=== PATIENT | male | born 1935 | race Caucasian/White ===

== ENCOUNTER → 2019-11-08 12:59 | Outpatient (CLI) | payer OTHER, SELFPAY ==
--- NOTE | ~2019-11-08 | CT_ITS ---
EXAMINATION: CT thoracic spine wo con EXAM DATE: 11/08/2019 13:22 INDICATION: TECHNIQUE: Spiral CT thoracic spine wo con was performed without contrast. Axial, coronal and sagit aroldo images were reviewed. The dose-length product (DLP) for this examination was 1104.49 mGy-cm. Th e exposure was tailored according to patient size (auto mA exposure control), and iterative reconstru ction (ASIR) was used as additional dose reduction technique. There is no prior study for comparison . FINDINGS: Patient has diffuse thoracic idiopathic skeletal hyperostosis. Cervical fusion hardware inc ompletely imaged. There is thoracolumbar spinal fusion hardware. No fracture line identified through the flowing thoracic syndesmophytes. There is mild to moderate thoracic disc disease. The vertebral b jone heights are maintained. Significant bilateral neural foraminal stenosis at T2-3 and T3-4. There i s moderate left neural foraminal stenosis at C5-6. Otherwise no more than mild central canal or neura l foraminal stenosis suspected. There is overall mild thoracic facet arthropathy. There are no bony e rosions identified. Paraspinal soft tissue is unremarkable. Pacemaker. IMPRESSION: 1. No acute thoracic findings. 2. Diffuse idiopathic skeletal hyperostosis without fracture line identified. 3. Significant neural foraminal stenosis cervical thoracic region and left T5-6 neural foramina. 4. Mild to moderate thoracic spondylosis. Reviewed, dictated and finalized at location B. 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 No acute thoracic findings. 2. Diffuse idiopathic skeletal hyperostosis without fracture line identified. 3. Significant neural foraminal stenosis cervical thoracic region and left T5- 6 neural foramina. 4. Mild to moderate thoracic spondylosis.
--- NOTE | ~2019-11-08 | XR_ITS ---
EXAMINATION: XR thoracic spine 2V DATE: 11/08/2019 13:33 INDICATION: Thoracic spine pain TECHNIQUE: AP, lateral and lateral swimmer's views of the thoracic spine were obtained. COMPARISON: CT from today FINDINGS: There are partially imaged changes of posterior fusion of the lower cervical spine and lowe r thoracolumbar spine. No fracture is identified. The vertebral body heights and alignment are normal . There is mild to moderate loss of intervertebral disc space height at several levels in the thoraci c spine. A dual-lead pacemaker of the left chest wall ends with its leads in expected positions. IMPRESSION: 1. Mild to moderate thoracic spondylosis without acute findings. 2. Diffuse idiopathic skeletal hyperostosis. Reviewed, dictated and finalized at location A. [employer] MANAGER
== END ==
PROVIDERS: PCP Emergency Medicine; Visit Provider Physician Assistant Medical
DX: M47.814 Spondylosis without myelopathy or radiculopathy, thoracic region (principal); M48.04 Spinal stenosis, thoracic region; M48.14 Ankylosing hyperostosis [Forestier], thoracic region
CPT/HCPCS: 72070; 72128

== ENCOUNTER → 2020-06-26 09:12 | Outpatient (CLI) | payer OTHER, SELFPAY ==
--- NOTE | ~2020-06-26 | CT_ITS ---
EXAMINATION: CT lumbar spine wo con DATE: 06/26/2020 09:44 INDICATION: Lumbar radiculopathy. TECHNIQUE: Computed tomography (CT) of the lumbar spine was performed without intravenous contrast. A utomated exposure control and iterative reconstruction technique were employed. The dose-length produ ct was 1142.99 mGy-cm. COMPARISON: None FINDINGS: There is 4 degrees dextrocurvature of thoracolumbar spine. Vertebral body heights are bubba l. There are changes of posterior fusion procedure from T11 to L4 with pedicle screws. There are brid ging endplate osteophytes from at least T9 to L4, consistent with diffuse idiopathic skeletal hyperos tosis (DISH). There is mildly decreased disc height at L3-L4, severely decreased disc height at L4-L5 , and moderately decreased disc height at L5-S1. The following disc levels are specifically discussed : L1-L2: The disc is bulging. There is mild bilateral facet joint hypertrophy. There is mild bilateral neural foraminal stenosis. There is no central canal stenosis. L2-L3: The disc is bulging. There is mild bilateral facet joint hypertrophy. There is moderate right and mild left neural foraminal stenosis. There is mild central canal stenosis. L3-L4: The disc is bulging. There is severe bilateral facet joint osteoarthritis. There is mild bilat eral neural foraminal stenosis. There is mild central canal stenosis. L4-L5: The disc is bulging. There is severe bilateral facet joint osteoarthritis. There is moderate b ilateral neural foraminal stenosis. There is moderate central canal stenosis. L5-S1: The disc is bulging. There is severe bilateral facet joint osteoarthritis. There is moderate b ilateral neural foraminal stenosis. There is mild central canal stenosis. IMPRESSION: 1. Severe lumbar spondylosis. 2. Posterior fusion procedure from T11 to L4. 3. DISH. Reviewed, dictated and finalized at location A.
== END ==
PROVIDERS: Visit Provider Nurse Practitioner Adult Health
DX: M54.16 Radiculopathy, lumbar region (principal); M47.816 Spondylosis without myelopathy or radiculopathy, lumbar region; M48.16 Ankylosing hyperostosis [Forestier], lumbar region; Z98.1 Arthrodesis status
CPT/HCPCS: 72131